=== PATIENT | female | born 1960 | race Caucasian/White ===

== ENCOUNTER 2023-03-22 10:01 | Emergency (ER) | payer OTHER ==
[~2023-03-22] VITALS: Ht 157.5 cm; Wt 78.0 kg
[2023-03-22] MEDS ORDERED: LOSARTAN POTASS50 MG (10:17)
[2023-03-22] MEDS ORDERED: METFORMIN HCL500 M3 (10:17)
[2023-03-22] MEDS ORDERED: FLUCONAZOLE150 MG (10:18)
[2023-03-22] MEDS ORDERED: ZYRTEC10 MG (10:18)
[2023-03-22] MEDS ORDERED: BREO ELLIPTA I1 EACH (10:18)
[2023-03-22] MEDS ORDERED: MONTELUKAST SODI4 M1 (10:18)
[2023-03-22] MEDS ORDERED: HYDROCHLOROTHIA25 MG (10:18)
[2023-03-22] MEDS ORDERED: FENOFIBRATE150 MG (10:18)
[2023-03-22] MEDS ORDERED: PEPCID AC20 MG (10:19)
[2023-03-22] MEDS ORDERED: LEVSIN/SL0.125 MG SL (14:31)
== END 2023-03-22 14:49 | disposition home or self-care (01) ==
LOC: ER 10:01
DX: R10.32 Left lower quadrant pain (principal)

== ENCOUNTER 2023-03-30 13:40 | Emergency (ER) | payer OTHER ==
[~2023-03-30] VITALS: Ht 147.3 cm; Wt 61.2 kg
[~2023-03-30 13:40] MED LIST: BREO ELLIPTA I1 EACH; FENOFIBRATE150 MG; FLUCONAZOLE150 MG; HYDROCHLOROTHIA25 MG; LEVSIN/SL0.125 MG SL; LOSARTAN POTASS50 MG; METFORMIN HCL500 M3; MONTELUKAST SODI4 M1; PEPCID AC20 MG; ZYRTEC10 MG
== END 2023-03-30 20:40 | disposition home or self-care (01) ==
LOC: ER 13:40
DX: J10.1 Influenza due to other identified influenza virus with other respiratory manifestations (principal); B34.9 Viral infection, unspecified; Z20.822 Contact with and (suspected) exposure to COVID-19; E11.9 Type 2 diabetes mellitus without complications; Z79.84 Long term (current) use of oral hypoglycemic drugs; I10 Essential (primary) hypertension; Z85.9 Personal history of malignant neoplasm, unspecified

== ENCOUNTER 2023-04-04 19:19 | Emergency (ER) | payer OTHER ==
[~2023-04-04] VITALS: Ht 147.3 cm; Wt 57.2 kg
[2023-04-04] MEDS ORDERED: XOPENEX HFA15 GM IH (19:29)
[2023-04-04] MEDS ORDERED: NASAL MIST126 ML (19:30)
[2023-04-04] MEDS ORDERED: ZOFRAN8 MG PO (22:20)
[2023-04-04] MEDS ORDERED: NEXIUM40 M1 PO (22:20)
[2023-04-04] MEDS ORDERED: MEDROLPACK PO (22:20)
[2023-04-04] MEDS ORDERED: LEVOFLOXACIN750 MG PO (22:20)
== END 2023-04-04 22:41 | disposition home or self-care (01) ==
LOC: ER 19:19
DX: J20.9 Acute bronchitis, unspecified (principal)

== ENCOUNTER 2023-04-30 06:48 | Day surgery (SDC) | payer OTHER ==
[~2023-04-30 06:48] MED LIST changes: +LEVOFLOXACIN750 MG PO; +MEDROLPACK PO; +NASAL MIST126 ML; +NEXIUM40 M1 PO; +XOPENEX HFA15 GM IH; +ZOFRAN8 MG PO
== END 2023-04-30 12:00 | disposition home or self-care (01) ==
LOC: AMB-ENDOS 06:48
PROVIDERS: ATTEND Surgery
DX: D12.0 Benign neoplasm of cecum (principal); K57.30 Diverticulosis of large intestine without perforation or abscess without bleeding; Z20.822 Contact with and (suspected) exposure to COVID-19

== ENCOUNTER 2023-06-23 09:44 | Emergency (ER) | payer OTHER ==
[~2023-06-23] VITALS: Ht 172.7 cm; Wt 81.6 kg
[2023-06-23 11:56] LABS: HEMATOCRIT 35.2 % (36.0-45.00); HEMOGLOBIN 11.8 g/dL (12.0-15.00); MEAN CELL VOLUME 85.8 fL (80.00-100.00); MEAN CORPUSCULAR HEMOGLOBIN 28.7 pg (27.00-32.0); MEAN CORPUSCULAR HGB CONC 33.4 g/dl (32.0-36.0); PLATELET COUNT 296 K/uL (150-450); RED CELL DISTRIBUTION WIDTH 13.3 % (11.5-14.5)
[2023-06-23 12:24] LABS: CALCIUM 9.7 mg/dL (8.5-10.1); CREATININE SERUM 0.98 mg/dL (0.55-1.02); GFR 57.5; POTASSIUM 3.75 mEq/L (3.5-5.1)
[2023-06-23 12:46] LABS: PH,URINE 6.5 (5.0-8.0); URINE APPEARANCE Clear; URINE BILIRRUBIN Negative (NEGATIVE); URINE BLOOD Negative; URINE COLOR Yellow; URINE GLUCOSE Negative (NEGATIVE); URINE LEUKOCYTE Negative; URINE NITRATE Negative; URINE PROTEIN Negative (NEGATIVE); URINE UROBILINOGEN 0.2 E.U./dl
[2023-06-23 12:54] LABS: URINE BACTERIA 2.5 uL (0.0-1933); URINE EPITHELIAL CELLS 1.3 uL (0.0-38.8); URINE WBC 3.3 uL (0.0-23.2)
== END 2023-06-23 13:30 | disposition home or self-care (01) ==
LOC: ER
PROVIDERS: General Practice
DX: R05.9 Cough, unspecified (principal); Z20.822 Contact with and (suspected) exposure to COVID-19; I10 Essential (primary) hypertension; E11.9 Type 2 diabetes mellitus without complications; Z79.84 Long term (current) use of oral hypoglycemic drugs